=== PATIENT | male | born 1950 | race African-American/Black ===

== ENCOUNTER 2016-09-25 05:54 | Day surgery (SDC) | payer MEDICARE, OTHER ==
--- NOTE | ~2016-09-25 | EGD ---
EGD REPORT [facility] [address] [place] [address] NAME: MOJGAN CLAUDIO : [birth year] STATUS : REG [facility]#: [id number] AGE: 65 ADM/REG DATE : 09/25/16 MR#: [id number] REPORT SERV DATE: 09/25/16 DICTATED BY: TATE BOO DATE: 09/25/16 REPORT STATUS : Draft TRANSCRIBED BY: [facility] DATE: 09/25/16 Endoscopy Center Patient Name: Mojgan Claudio Date of : 1950 Attending MD: TATE BOO MD Procedure Date No Time: 09/25/2016 Procedure: Colonoscopy Indications: Personal history of colonic polyps, Constipation Referring MD: CANDE MERAZ Medicines: Propofol per Anesthesia Complications: No immediate complications. Procedure: Pre-Anesthesia Assessment: - ASA Grade Assessment: III - A patient with severe systemic disease. - Prior to the procedure, a History and Physical was performed, and patient medications and allergies were reviewed. The patient's tolerance of previous anesthesia was also reviewed. The risks and benefits of the procedure and the sedation options and risks were discussed with the patient. All questions were answered, and informed consent was obtained. Prior Anticoagulants: The patient has taken no previous anticoagulant or antiplatelet agents. ASA Grade Assessment: III - A patient with severe systemic disease. After reviewing the risks and benefits, the patient was deemed in satisfactory condition to undergo the procedure. After I obtained informed consent, the scope was passed under direct vision. Throughout the procedure, the patient's blood pressure, pulse, and oxygen saturations were monitored continuously. The PCF [id number] was introduced through the anus and advanced to the cecum, identified by appendiceal orifice and ileocecal valve. The colonoscopy was performed without difficulty. The patient tolerated the procedure well. The quality of the bowel preparation was good. The ileocecal valve and appendiceal orifice were photographed. The entire colon was examined. The colonoscopy was performed without difficulty. The patient tolerated the procedure well. The quality of the bowel preparation was good. Findings: The perianal and digital rectal examinations were normal. Internal hemorrhoids were found during retroflexion and were Grade I (internal hemorrhoids that do not prolapse). The colon (entire examined portion) appeared normal. EGD REPORT [address] [address] NAME: MOJGAN CLAUDIO : [birth year] STATUS : REG [facility]#: [id number] AGE: 65 ADM/REG DATE : 09/25/16 MR#: [id number] REPORT SERV DATE: 09/25/16 DICTATED BY: TATE BOO DATE: 09/25/16 REPORT STATUS : Draft TRANSCRIBED BY: [employer] DATE: 09/25/16 The rest of the colon was normal. Impression: - Internal hemorrhoids. - The entire examined colon is normal. Recommendation: - Patient has a contact number available for emergencies. The signs and symptoms of potential delayed complications were discussed with the patient. Return to normal activities tomorrow. Written discharge instructions were provided to the patient. - Regular diet. - Patient has a contact number available for emergencies. The signs and symptoms of potential delayed complications were discussed with the patient. Return to normal activities tomorrow. Written discharge instructions were provided to the patient. - Regular diet. - Patient has a contact number available for emergencies. The signs and symptoms of potential delayed complications were discussed with the patient. Return to normal activities tomorrow. Written discharge instructions were provided to the patient. - Continue present medications. - Repeat colonoscopy in 5 years for surveillance. Procedure Code(s): --- Professional --- 39891, Colonoscopy, flexible, proximal to splenic flexure; diagnostic, with or without collection of specimen(s) by brushing or washing, with or without colon decompression (separate procedure) Diagnosis Code(s): --- Professional --- K64.0, First degree hemorrhoids Z86.010, Personal history of colonic polyps K59.00, Constipation, unspecified CPT copyright 2013 [employer]. All rights reserved. The codes documented in this report are preliminary and upon second butler review may be revised to meet current compliance requirements. Tate Boo MD TATE BOO MD 09/25/2016 7:27 AM This report has been signed electronically. EGD REPORT [facility] [address] [address] NAME: MOJGAN CLAUDIO : [birth year] STATUS : REG [facility] PAT#: [id number] AGE: 65 ADM/REG DATE : 09/25/16 MR#: [id number] REPORT SERV DATE: 09/25/16 DICTATED BY: TATE BOO. DATE: 09/25/16 REPORT STATUS : Draft TRANSCRIBED BY: [employer] DATE: 09/25/16 Number of Addenda: 0 Note Initiated On: 09/25/2016 7:03 AM Scope Withdrawal Time 0 hours 3 minutes 37 seconds [address] [id number]
--- NOTE | ~2016-09-25 | EGD ---
EGD REPORT [facility] [address] [address] NAME: MOJGAN CLAUDIO : [birth year] STATUS : REG [facility]#: [id number] AGE: 65 ADM/REG DATE : 09/25/16 MR#: [id number] REPORT SERV DATE: 09/25/16 DICTATED BY: TATE BOO DATE: 09/25/16 REPORT STATUS : Draft [facility]IB[facility]: [facility] DATE: 09/25/16 Endoscopy Center Patient Name: Mojgan Claudio Date of : 1950 Attending MD: TATE BOO MD Procedure Date No Time: 09/25/2016 Procedure: Upper GI endoscopy Referring MD: CANDE MERAZ Medicines: Propofol per Anesthesia Complications: No immediate complications. Procedure: Pre-Anesthesia Assessment: - ASA Grade Assessment: III - A patient with severe systemic disease. After obtaining informed consent, the endoscope was passed under direct vision. Throughout the procedure, the patient's blood pressure, pulse, and oxygen saturations were monitored continuously. The GIF H190 [id number] was introduced through the mouth, and advanced to the second part of duodenum. The upper GI endoscopy was accomplished without difficulty. The patient tolerated the procedure well. Findings: The examined esophagus was normal. Diffuse mild inflammation characterized by erosions and erythema was found in the stomach. Biopsies were taken with a cold forceps for histology. The examined duodenum was normal. Impression: - Normal esophagus. - Chronic gastritis. Biopsied. - Normal examined duodenum. Recommendation: - Discharge patient to home. Procedure Code(s): --- Professional --- 54196, Esophagogastroduodenoscopy, flexible, transoral; with biopsy, single or multiple Diagnosis Code(s): --- Professional --- K29.50, Unspecified chronic gastritis without bleeding CPT copyright 2013 [employer]. All rights reserved. EGD REPORT [place] [address] [address] NAME: MOJGAN CLAUDIO : [birth year] STATUS : REG [facility] PAT#: [id number] AGE: 65 ADM/REG DATE : 09/25/16 MR#: [id number] REPORT SERV DATE: 09/25/16 DICTATED BY: TATE BOO. DATE: 09/25/16 REPORT STATUS : Draft TRANSCRIBED BY: [employer] DATE: 09/25/16 The codes documented in this report are preliminary and upon heating unit mechanic review may be revised to meet current compliance requirements. Tate Boo MD TATE BOO MD 09/25/2016 7:16 AM This report has been signed electronically. Number of Addenda: 0 Note Initiated On: 09/25/2016 7:05 AM Scope Withdrawal Time 0 hours 0 minutes 0 seconds [place] [address]
[~2016-09-25 05:54] MED LIST: ALEVE220 MG PO; ASAB PO; LIPITOR20 PO; LIPITOR40 PO; LISINOPRIL40 MG PO; LOP100 PO; LOP50 PO; NICODERM C14 MG/24 H TOP; NITROSTAT0.4 MG SL; NORV10 PO; PRILO PO; PROVHFA INH; SEROQUEL200 MG PO; SEROQUEL50 MG PO; TOPXL100 PO; V5 PO; VIAGRA100 MG PO; ZANTAC150 MG PO
== END 2016-09-25 23:59 | disposition home or self-care (01) ==
LOC: DMU 05:54
PROVIDERS: Internal Medicine Gastroenterology
PROC: 0DJD8ZZ Inspection of Lower Intestinal Tract, Via Natural or Artificial Opening Endoscopic (ICD-10-PCS; principal; 2016-09-25 07:00)
PROC: 0DB68ZX Excision of Stomach, Via Natural or Artificial Opening Endoscopic, Diagnostic (ICD-10-PCS; 2016-09-25 07:00)
DX: K64.0 First degree hemorrhoids (principal); K29.50 Unspecified chronic gastritis without bleeding; E78.00 Pure hypercholesterolemia, unspecified; I10 Essential (primary) hypertension; F17.210 Nicotine dependence, cigarettes, uncomplicated; N40.0 Benign prostatic hyperplasia without lower urinary tract symptoms; F41.9 Anxiety disorder, unspecified; F43.10 Post-traumatic stress disorder, unspecified; F32.9 Major depressive disorder, single episode, unspecified; M19.90 Unspecified osteoarthritis, unspecified site; Z86.010 Personal history of colon polyps
CPT/HCPCS: 88305; A9270-GY